=== PATIENT | male | born 1950 | race Caucasian/White ===

== ENCOUNTER 2016-12-08 22:39 | Emergency (ER) | payer OTHER ==
[~2016-12-08] VITALS: Ht 165.1 cm; Wt 68.0 kg
[~2016-12-08 22:39] MED LIST: HYDR10TA16 PO; LEVO.15 PO; PROM1SUP12 PR; TERA2CAP3 PO
[2016-12-08 22:42] VITALS: BP 122/64; PULSE 92; RESP 16; TEMP 98.1; O2SAT 96
[2016-12-08] MEDS ORDERED: LEVO.15 PO (22:49)
[2016-12-08] MEDS ORDERED: TAMS5CAP PO ×2 (22:49)
[2016-12-08] MEDS ORDERED: TETANUS/DIPHTHERIA TOXOID ADULT 0.5 ML VIAL IM ONE (23:15)
[2016-12-08] MEDS ORDERED: SODIUM CHLORIDE 0.9% FLUSH 5 ML FLUSH IVF PRN (23:15)
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
[2016-12-09] MEDS ORDERED: MOTR200T4 PO (01:08)
[2016-12-09] MEDS ORDERED: CYCL1TAB29 PO (01:08)
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
== END 2016-12-09 03:14 | disposition home or self-care (01) ==
LOC: NEPC 22:39
DX: S01.01XA Laceration without foreign body of scalp, initial encounter (principal); S82.52XA Displaced fracture of medial malleolus of left tibia, initial encounter for closed fracture; I10 Essential (primary) hypertension; E03.9 Hypothyroidism, unspecified; Z86.79 Personal history of other diseases of the circulatory system; H91.90 Unspecified hearing loss, unspecified ear; Z23 Encounter for immunization; Z87.39 Personal history of other diseases of the musculoskeletal system and connective tissue; V89.2XXA Person injured in unspecified motor-vehicle accident, traffic, initial encounter
CPT/HCPCS: 12004; 70450; 71010; 72125; 72170; 73610; 90471; 90714; 99284; E0113; L1906

== ENCOUNTER 2016-12-21 19:27 | Emergency (ER) | payer OTHER ==
[~2016-12-21] VITALS: Ht 165.1 cm; Wt 68.0 kg
[~2016-12-21 19:27] MED LIST changes: +CYCL1TAB29 PO; -HYDR10TA16 PO; +MOTR200T4 PO; -PROM1SUP12 PR; +TAMS5CAP PO; -TERA2CAP3 PO
[2016-12-21 19:29] VITALS: BP 143/80; PULSE 87; RESP 16; O2SAT 98
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
== END 2016-12-21 20:04 | disposition home or self-care (01) ==
LOC: NEPB 19:27
DX: Z48.02 Encounter for removal of sutures (principal); I10 Essential (primary) hypertension; E03.9 Hypothyroidism, unspecified
CPT/HCPCS: 99281